=== PATIENT | female | born 1970 | race Caucasian/White ===

== ENCOUNTER 2017-02-11 09:19 | Emergency (ER) | payer OTHER, SELFPAY ==
[2017-02-11 09:48] LABS: #Eosinphils 0.2 thou/uL (0.0-0.7); #Lymphocytes 2.3 thou/uL (1.20-3.40); #Monocytes 0.4 thou/uL (0.11-0.59); #Neutrophils 4.8 thou/uL (1.40-6.50); %Basophils 0.4 % (0.0-1.0); %Eosinophils 2.2 % (0.0-10.0); %Lymphocytes 30.1 % (21.0-51.0); %Monocytes 5.1 % (0.0-10.0); Mean Platelet Volume 6.7 fL (7.4-10.4); Red Blood Cell (RBC) Count 3.19 mill/uL (4.20-5.40); White Blood Cell (WBC) Count 7.7 thou/uL (4.8-10.8)
[2017-02-11 10:06] LABS: ALT (SGPT) 93 U/L (8-55); AST (SGOT) 71 U/L (5-34); Alkaline Phosphatase 109 U/L (40-150); Anion Gap 14 mmol/L (10-20); BUN (Urea Nitrogen) 10 mg/dL (7.0-18.7); Bilirubin, Total 0.2 mg/dL (0.2-1.2); CK (CPK) 64 U/L (29-168); Calc. Creatinine Clearance 0 mL/min (70-130); Calcium 8.6 mg/dL (7.8-10.44); Carbon Dioxide 23 mmol/L (22-29); Chloride 104 mmol/L (98-107); Estimated GFR-MDRD 90; Globulin 3.6 g/dL (2.4-3.5); Protein, Total 7.1 g/dL (6.0-8.3)
[2017-02-11 10:09] LABS: Troponin I Less than 0.010 ng/mL (< 0.028)
--- NOTE | 2017-02-11 11:06 | RAD ---
PORTABLE UPRIGHT FRONTAL CHEST RADIOGRAPH: DATE: 02/11/17. COMPARISON: None. HISTORY: Shortness of breath and weakness. FINDINGS: No pneumothorax, pleural fluid, focal consolidation, or alveolar edema. Heart and mediastinal contou rs are unremarkable. IMPRESSION: No acute findings. POS: [facility]
--- NOTE | 2017-03-20 14:08 | EKG ---
Test Reason : CHEST TIGHT Blood Pressure : / mmHG Vent. Rate : 098 BPM Atrial Rate : 098 BPM P-R Int : 174 ms QRS Dur : 084 ms QT Int : 338 ms P-R-T Axes : 059 019 058 degrees QTc Int : 431 ms Normal sinus rhythm ST abnormality, Nonspecific ST changes Abnormal ECG Confirmed by YESSY BELLO, BETTY Barajas ([id number]), greeting card editor ABELINO ADAMES ([id number]) on 03/20/2017 2:07:33 PM Referred By: Confirmed By:BETTY KRISHNAMURTHY MD
== END 2017-02-11 11:20 | disposition home or self-care (01) ==
LOC: ERS 09:19
DX: R06.00 Dyspnea, unspecified (principal); D64.9 Anemia, unspecified; F41.9 Anxiety disorder, unspecified; I10 Essential (primary) hypertension; J45.909 Unspecified asthma, uncomplicated; F31.9 Bipolar disorder, unspecified; Z79.899 Other long term (current) drug therapy
CPT/HCPCS: 36415; 71010; 80053; 82274; 82553; 84484; 85025; 85379; 93005; 94760

== ENCOUNTER 2017-02-17 16:17 | Emergency (ER) | payer SELFPAY ==
[2017-02-17] MEDS ORDERED: Ketorolac Tromethamine 60 MG/2 ML VIAL ONE (19:05)
== END 2017-02-17 19:10 | disposition home or self-care (01) ==
LOC: ERS 16:17
DX: L73.9 Follicular disorder, unspecified (principal); I10 Essential (primary) hypertension; J45.909 Unspecified asthma, uncomplicated; F41.9 Anxiety disorder, unspecified; F32.9 Major depressive disorder, single episode, unspecified; Z79.899 Other long term (current) drug therapy
CPT/HCPCS: 96372; J1885

== ENCOUNTER 2017-02-28 16:56 | Emergency (ER) | payer SELFPAY ==
[2017-02-28] MEDS ORDERED: Famotidine 20 MG TAB ONE (17:50)
[2017-02-28] MEDS ORDERED: predniSONE 20 MG TAB ONE (17:51)
== END 2017-02-28 17:43 | disposition home or self-care (01) ==
LOC: SCSER 16:56
DX: R21 Rash and other nonspecific skin eruption (principal); T43.225A Adverse effect of selective serotonin reuptake inhibitors, initial encounter; I10 Essential (primary) hypertension; J45.909 Unspecified asthma, uncomplicated; F41.9 Anxiety disorder, unspecified; F31.9 Bipolar disorder, unspecified; Z79.899 Other long term (current) drug therapy
CPT/HCPCS: 99282; J7506

== ENCOUNTER 2017-07-10 22:10 | Emergency (ER) | payer SELFPAY ==
[2017-07-10] MEDS ORDERED: Ketorolac Tromethamine 30 MG/ML VIAL ONE (22:50)
[2017-07-11 00:09] LABS: #Basophils 0.1 thou/uL (0.0-0.2); #Eosinphils 0.2 thou/uL (0.0-0.7); #Lymphocytes 3.8 thou/uL (1.20-3.40); #Monocytes 0.7 thou/uL (0.11-0.59); %Basophils 1.1 % (0.0-1.0); %Eosinophils 2.1 % (0.0-10.0); %Lymphocytes 35.2 % (21.0-51.0); %Monocytes 6.4 % (0.0-10.0); %Neutrophils 55.2 % (42.0-75.0); Hemoglobin 12.4 g/dL (12.0-16.0); Mean Corpuscular HGB CONC 33.9 g/dL (32.0-36.0); Mean Corpuscular Hemoglobin 27.9 pg (27.0-31.0); Mean Corpuscular Volume 82.4 fl (81.0-99.0); Mean Platelet Volume 6.4 fL (7.4-10.4); Platelet Count 351 thou/uL (130-400); RBC Distribution Width 14.1 % (11.5-14.5); Red Blood Cell (RBC) Count 4.44 mill/uL (4.20-5.40); White Blood Cell (WBC) Count 10.8 thou/uL (4.8-10.8)
[2017-07-11 00:46] LABS: Anion Gap 15 mmol/L (10-20); BUN (Urea Nitrogen) 10 mg/dL (7.0-18.7); Calc. Creatinine Clearance 0 mL/min (70-130); Calcium 9.2 mg/dL (7.8-10.44); Carbon Dioxide 24 mmol/L (22-29); Chloride 102 mmol/L (98-107); Estimated GFR-MDRD 84; Glucose 104 mg/dL (70-105); Potassium 3.6 mmol/L (3.5-5.1); Sodium 137 mmol/L (136-145)
[2017-07-11] MEDS ORDERED: Lorazepam 2 MG/ML VIAL ONE (01:30)
--- NOTE | 2017-07-11 12:01 | MRI ---
PRELIMINARY REPORT/[facility]/EMERGENTY AFTER-HOURS PROCEDURE MR Cervical Spine Without and With Intravenous Contrast CLINICAL HISTORY: 46 years old, female; Pain; Neck pain and other: R/O epidural abcess; Patient HX: F46 presents to ed C/O pain in her neck that radiated down into her arm for the past x2 months. Pt reports SOB. Pmhx of degenerative disk disease, sciatica, and nerve pain. Pt states that she came in today because the pain began to throb. Pt states she has picked up smoking again. TECHNIQUE: Magnetic resonance images of the cervical spine without and with intravenous contrast in multiple elliot cuca. CONTRAST: 20 mL of Multihance administered intravenously. COMPARISON: No relevant prior studies available. FINDINGS: Vertebrae: Loss of vertebral body height, presumed degenerative No acute fracture. Spinal cord: Normal signal. No abnormal enhancement. Soft tissues: No paraspinal or epidural collection DISCS/SPINAL CANAL/NEURAL FORAMINA: C2-C3: Unremarkable. No significant disc disease. No stenosis. C3-C4: Bilateral foraminal stenosis. No central canal stenosis C4-C5: Right greater than left foraminal stenosis. No significant central canal stenosis C5-C6: Mild central canal stenosis. Left greater than right foraminal stenosis C6-C7: Mild central canal stenosis and bilateral moderate to severe foraminal stenosis C7-T1: Unremarkable. No significant disc disease. No stenosis. IMPRESSION: Degenerative changes most pronounced at C6-C7 as noted No definite epidural or paraspinal collection Thank you for allowing us to participate in the care of your patient. Dictated and Authenticated by: Jude Salgado MD 07/11/2017 3:29 AM Central Time ([place] & [place]) FINAL REPORT MRI CERVICAL SPINE WITH AND WITHOUT CONTRAST: Date: 07/11/17 Multiplanar, multisequential imaging of cervical spine obtained. Postcontrast images obtained with ad ministration of 20 mL MultiHance IV. FINDINGS: Disc bulge and spondylosis at C5-6 and C6-7 impinge on the anterior cord. No abnormal enhancement. I am in agreement with the preliminary report issued by [facility]. POS: [facility]
--- NOTE | 2017-07-11 12:05 | MRI ---
PRELIMINARY REPORT/[facility]/EMERGENTY AFTER-HOURS PROCEDURE MR Lumbar Spine Without and With Intravenous Contrast CLINICAL HISTORY: 46 years old, female; Pain; Low back pain and other: R/O epidural abcess; Patient HX: F46 presents to ed C/O pain in her neck that radiated down into her arm for the past x2 months. Pt reports SOB. Pmhx of degenerative disk disease, sciatica, and nerve pain. Pt states that she came in today because the pain began to throb, pt states she has picked up smoking again. TECHNIQUE: Magnetic resonance images of the lumbar spine without and with intravenous contrast in multiple plane s. CONTRAST: 20 mL of Multihance administered intravenously. COMPARISON: No relevant prior studies available. FINDINGS: Vertebrae: Grossly maintained. Mild anterolisthesis of L5 on S1 is presumed degenerative No acute fra cture. Spinal cord: Unremarkable. Normal signal. No abnormal enhancement. Soft tissues: Bilateral renal cysts noted DISCS/SPINAL CANAL/NEURAL FORAMINA: L1-L2: Unremarkable. No significant disc disease. No stenosis. L2-L3: Unremarkable. No significant disc disease. No stenosis. L3-L4: Unremarkable. No significant disc disease. No stenosis. L4-L5: Right greater than left foraminal stenosis. Mild central canal stenosis observed L5-S1: Right greater than left foraminal stenosis. Mild central canal stenosis IMPRESSION: No definite epidural or paraspinal abscess Degenerative changes most pronounced in the lower lumbar spine as noted Thank you for allowing us to participate in the care of your patient. Dictated and Authenticated by: Jude Salgado MD 07/11/2017 3:29 AM Central Time ([place] & [place]) FINAL REPORT: MRI LUMBAR SPINE PERFORMED WITH AND WITHOUT CONTRAST ENHANCEMENT: History: Back pain. FINDINGS: Vertebral bodies are normal in height. Disc space height appears fairly well preserved. There is some disc desiccation changes at L4-5 and L5-S1. Very minimal spondylolisthesis of approximately 2 mm is seen of L5 on S1. There is no significant periaortic adenopathy demonstrated. T2 hyperintense areas w ithin the right kidney are statistically most likely cysts. T12-L1: Unremarkable. L1-2: Unremarkable. L2-3: Mild facet hypertrophic changes. No canal or foraminal stenosis. L3-4: Mild to moderate degenerative facet changes, some ligamentous hypertrophic change. No canal or foraminal stenosis. L4-5: There are fairly pronounced degenerative facet changes at this level, also ligamentous hypertro phic change associated with a mild degree of canal narrowing. There is fluid within the facet joints. There is some mild bilateral foraminal narrowing. L5-S1: Canal shows a mild degree of stenosis. There is a small left paracentral annular disc tear pre sent. There is some mild bilateral foraminal narrowing noted. Mild canal stenosis and mild bilateral foraminal narrowing at the L4-5 and L5-S1 levels. Changes are largely related to prominent degenerative facet changes at these levels. Post contrast images fail to show any signs of any abnormal fluid collection or signs for any type of epidural abscess. IMPRESSION: 1. No signs of abscess. 2. Some mild canal narrowing and mild foraminal narrowing at the L4-5 and L5-S1 levels, largely relat ed to facet changes. 3. This report is in agreement with the temporary report issued by [facility]. This report is in agreement with the [facility] report.
== END 2017-07-11 04:03 | disposition home or self-care (01) ==
LOC: SCSER 22:10
DX: S13.4XXA Sprain of ligaments of cervical spine, initial encounter (principal); I10 Essential (primary) hypertension; J45.909 Unspecified asthma, uncomplicated; F31.9 Bipolar disorder, unspecified; F41.9 Anxiety disorder, unspecified; F17.210 Nicotine dependence, cigarettes, uncomplicated; Z79.899 Other long term (current) drug therapy; X58.XXXA Exposure to other specified factors, initial encounter
CPT/HCPCS: 72156; 72158; 80048; 85025; 85652; 93005; 96372; 96374; J1885; J2060

== ENCOUNTER 2017-09-10 19:57 | Emergency (ER) | payer SELFPAY ==
[2017-09-10] MEDS ORDERED: Ketorolac Tromethamine 30 MG/ML VIAL ONE (20:48)
== END 2017-09-10 21:31 | disposition home or self-care (01) ==
LOC: SCSER 19:57
DX: M54.12 Radiculopathy, cervical region (principal); I10 Essential (primary) hypertension; J45.909 Unspecified asthma, uncomplicated; F41.9 Anxiety disorder, unspecified; F31.9 Bipolar disorder, unspecified; F17.210 Nicotine dependence, cigarettes, uncomplicated; Z79.899 Other long term (current) drug therapy
CPT/HCPCS: 96372; J1885

== ENCOUNTER 2017-09-11 14:03 | Emergency (ER) | payer SELFPAY | END 2017-09-11 16:40 | disposition home or self-care (01) | LOC: ERS 14:03 | DX: M54.12 Radiculopathy, cervical region (principal); I10 Essential (primary) hypertension; J45.909 Unspecified asthma, uncomplicated; F41.9 Anxiety disorder, unspecified; F31.9 Bipolar disorder, unspecified; F17.210 Nicotine dependence, cigarettes, uncomplicated; Z79.899 Other long term (current) drug therapy | CPT/HCPCS: 96372; J2270 ==